=== PATIENT | female | born 1980 | race Caucasian/White ===

== ENCOUNTER 2020-12-01 20:02 | Emergency (ER) | payer OTHER ==
[~2020-12-01] VITALS: Ht 170.2 cm; Wt 74.4 kg
[2020-12-01 21:42] VITALS: BP 139/90
[2020-12-01] MEDS ORDERED: IBUP-1957 PO (22:12)
[2020-12-01] MEDS ORDERED: SULF1TAB48 PO (22:12)
[2020-12-01] MEDS ORDERED: SULFAMETH/TRIMETH 800/160 MG 1 UDTAB TABLET ONE (22:17)
--- NOTE | 2020-12-01 22:24 | NUR ---
Patient discharged to home in stable condition. Written and verbal after care instructions given. Patient verbalizes understanding of instruction.
[2020-12-01] MEDS ORDERED: SULFAMETH/TRIMETH 800/160 MG 1 UDTAB TABLET PO ONE (22:30)
== END 2020-12-01 22:33 | disposition home or self-care (01) ==
LOC: ER 20:06
DX: Z48.01 Encounter for change or removal of surgical wound dressing (principal); F15.90 Other stimulant use, unspecified, uncomplicated; F31.9 Bipolar disorder, unspecified; Z88.1 Allergy status to other antibiotic agents; Z88.8 Allergy status to other drugs, medicaments and biological substances

== ENCOUNTER 2020-12-10 08:06 | Emergency (ER) | payer OTHER ==
[~2020-12-10] VITALS: Ht 170.2 cm; Wt 742.1 kg
[~2020-12-10 08:06] MED LIST: IBUP-1957 PO; SULF1TAB48 PO
[2020-12-10 08:12] VITALS: BP 128/72
[2020-12-10] MEDS ORDERED: MUPI22OI7 MC (08:23)
== END 2020-12-10 08:28 | disposition home or self-care (01) ==
LOC: ER 08:09
DX: L02.31 Cutaneous abscess of buttock (principal); F19.10 Other psychoactive substance abuse, uncomplicated; F31.9 Bipolar disorder, unspecified; Z88.8 Allergy status to other drugs, medicaments and biological substances; Z79.899 Other long term (current) drug therapy

== ENCOUNTER 2021-02-08 15:11 | Emergency (ER) | payer OTHER ==
[~2021-02-08] VITALS: Ht 170.2 cm; Wt 72.1 kg
[~2021-02-08 15:11] MED LIST changes: +MUPI22OI7 MC
[2021-02-08 15:47] VITALS: BP 120/79
[2021-02-08] MEDS ORDERED: FLUORESCEIN SODIUM OPHTH 1 EA STRIP ONE (16:07)
[2021-02-08] MEDS: TETRACAINE HCL 0.5% OPHTALMIC 15 ML BOTTLE OP ONE (16:18)
[2021-02-08] MEDS: FLUORESCEIN SODIUM OPHTH 1 EA STRIP OP ONE (16:18)
[2021-02-08] MEDS ORDERED: OFLO5DRO6 EACHEYE (16:38)
== END 2021-02-08 16:50 | disposition home or self-care (01) ==
LOC: ER 15:15
DX: S05.02XA Injury of conjunctiva and corneal abrasion without foreign body, left eye, initial encounter (principal); F31.9 Bipolar disorder, unspecified; Z88.5 Allergy status to narcotic agent; Z88.8 Allergy status to other drugs, medicaments and biological substances; Z79.899 Other long term (current) drug therapy; X58.XXXA Exposure to other specified factors, initial encounter; Y93.89 Activity, other specified; Y92.89 Other specified places as the place of occurrence of the external cause; Y99.8 Other external cause status

== ENCOUNTER 2021-04-21 03:43 | Emergency (ER) | payer OTHER ==
[~2021-04-21] VITALS: Ht 170.2 cm; Wt 77.1 kg
[~2021-04-21 03:43] MED LIST changes: +OFLO5DRO6 EACHEYE
[2021-04-21 04:01] VITALS: BP 132/73
--- NOTE | 2021-04-21 04:26 | NUR ---
COLLIN SWABBED AND SENT TO LAB
[2021-04-21] MEDS ORDERED: LIDOCAINE 1%-EPI 1:100,000 20 ML VIAL ONE (04:36)
--- NOTE | 2021-04-21 05:09 | NUR ---
AT BED SIDE FOR I&D
--- NOTE | 2021-04-21 05:22 | NUR ---
URINE SENT TO LAB
[2021-04-21] MEDS ORDERED: CEPH500C2 PO (05:35)
[2021-04-21] MEDS ORDERED: MICO1KIT10 VG (05:39)
== END 2021-04-21 05:47 | disposition home or self-care (01) ==
LOC: ER 03:43
DX: L02.414 Cutaneous abscess of left upper limb (principal); F17.200 Nicotine dependence, unspecified, uncomplicated; Z88.8 Allergy status to other drugs, medicaments and biological substances
CPT/HCPCS: 10060; 84703; 99283; 99406; J3490

== ENCOUNTER 2021-07-29 10:50 | Emergency (ER) | payer OTHER ==
[~2021-07-29] VITALS: Ht 170.2 cm; Wt 78.0 kg
[~2021-07-29 10:50] MED LIST changes: +CEPH500C2 PO; +MICO1KIT10 VG
[2021-07-29 10:56] VITALS: BP 105/60
--- NOTE | 2021-07-29 11:05 | NUR ---
ABDOMINAL PAIN X FEW DAYS. AMBULATORY NOT I DISTRESS.
--- NOTE | 2021-07-29 11:14 | NUR ---
AT BED SIDE
--- NOTE | 2021-07-29 11:23 | NUR ---
[employer] ON BED SIDE
[2021-07-29 12:30] LABS: ALBUMIN 3.5 g/dL (3.4-5.0); BILIRUBIN,DIRECT 0.1 mg/dL (0.0-0.2); BILIRUBIN,TOTAL 0.8 mg/dL (0.2-1.0); CALCIUM, SERUM 8.4 mg/dL (8.5-10.1); CREATININE 0.5 mg/dL (0.6-1.3); TOTAL PROTEIN, SERUM 6.8 g/dL (6.4-8.2)
[2021-07-29 12:44] LABS: BILIRUBIN,URINE NEGATIVE (NEGATIVE); COLOR,URINE YELLOW (YELLOW); LEUKOCYTE ESTERASE ,URINE NEGATIVE (NEGATIVE); NITRITE, URINE NEGATIVE (NEGATIVE); PH,URINE 6.5 (5.0-8.0); PROTEIN,URINE NEGATIVE (NEGATIVE); UGLUCOSE NEGATIVE (NEGATIVE); UROBILINOGEN,URINE 0.2 EU/dL (0.2)
[2021-07-29 12:52] LABS: BACTERIA,URINE Moderate /HPF (None Seen); RBC,URINE 0-2 /HPF (0-2); SQUAMOUS EPITHELIAL CELL,UR Few /HPF (None Seen); WBC,URINE 0-2 /HPF (0-3)
[2021-07-29 13:21] LABS: BASOPHILS % (AUTO) 0.8 % (0.0-2.0); EOSINOPHILS % (AUTO) 2.7 % (0.0-6.0); HEMATOCRIT 37 % (33-45); HEMOGLOBIN 12.2 g/dL (11.5-14.8); LYMPHOCYTES # (AUTO) 0.8 K/uL (0.8-4.8); LYMPHOCYTES % (AUTO) 15.3 % (20.0-44.0); MEAN CORPUSCULAR HGB CONC 33 g/dl (31.0-36.0); MEAN CORPUSCULAR VOLUME 84 fL (82-100); MONOCYTES # (AUTO) 0.7 K/uL (0.1-1.30); MONOCYTES % (AUTO) 13.2 % (2.0-12.0); NEUTROPHILS # (AUTO) 3.7 K/uL (1.8-8.9); PLATELET COUNT (AUTO) 253 K/uL (150-450); RED BLOOD CELL COUNT(AUTO) 4.37 MIL/uL (4.0-5.2); WHITE BLOOD COUNT (AUTO) 5.4 K/uL (4.3-11.0)
== END 2021-07-29 13:50 | disposition home or self-care (01) ==
LOC: ER 10:53
DX: R11.2 Nausea with vomiting, unspecified (principal); R19.7 Diarrhea, unspecified; F31.9 Bipolar disorder, unspecified; Z88.8 Allergy status to other drugs, medicaments and biological substances; Z79.1 Long term (current) use of non-steroidal anti-inflammatories (NSAID); Z79.899 Other long term (current) drug therapy
CPT/HCPCS: 36415; 80048-TC; 80076-TC; 81001; 84703-TC; 85025-TC; 87086-TC

== ENCOUNTER 2021-12-04 16:33 | Emergency (ER) | payer OTHER ==
[~2021-12-04] VITALS: Ht 170.2 cm; Wt 86.2 kg
[2021-12-04 16:49] VITALS: BP 107/65
--- NOTE | 2021-12-04 16:55 | NUR ---
BIBS FOR PAIN/REDNESS, LEFT EYE SINCE 3 DAYS AGO AFTER LEAVING CONTACTS FOR TOO LONG. RATES PAIN 5/10. WILL CONTINUE TO MONITOR THE PATIENT.
[2021-12-04] MEDS ORDERED: TETRACAINE HCL 0.5% OPHTALMIC 15 ML BOTTLE OP ONE (17:00)
[2021-12-04] MEDS ORDERED: FLUORESCEIN SODIUM OPHTH 1 EA STRIP OP ONE (17:00)
[2021-12-04] MEDS ORDERED: FLUORESCEIN SODIUM OPHTH 1 EA STRIP ONE (17:12)
--- NOTE | 2021-12-04 17:40 | NUR ---
Patient discharged to home in stable condition. Written and verbal after care instructions given. Patient verbalizes understanding of instruction.
== END 2021-12-04 17:41 | disposition home or self-care (01) ==
LOC: ER 16:34
DX: H10.32 Unspecified acute conjunctivitis, left eye (principal); F31.9 Bipolar disorder, unspecified; Z88.8 Allergy status to other drugs, medicaments and biological substances; Z79.899 Other long term (current) drug therapy

== ENCOUNTER 2023-07-25 15:52 | Emergency (ER) | payer MEDICAID, OTHER ==
[~2023-07-25] VITALS: Ht 170.2 cm; Wt 72.6 kg
[2023-07-25 16:06] VITALS: TEMP 98.4
[2023-07-25] MEDS ORDERED: IV NS 0.9% 250 ML IV ONE (18:01)
[2023-07-25] MEDS ORDERED: CT SWABBABLE VALVE TRANS SET 1 EA INFUS.SET MC ONE (18:01)
[2023-07-25] MEDS ORDERED: IOHEXOL-300 100 ML VIAL IV ONE (18:01)
[2023-07-25 18:03] LABS: BASOPHILS # (AUTO) 0.1 K/uL (0.0-0.2); BASOPHILS % (AUTO) 1.1 % (0.0-2.0); EOSINOPHILS # (AUTO) 0.6 K/uL (0.0-0.7); EOSINOPHILS % (AUTO) 7.1 % (0.0-6.0); HEMATOCRIT 38 % (33-45); HEMOGLOBIN 12.5 g/dL (11.5-14.8); LYMPHOCYTES # (AUTO) 1.4 K/uL (0.8-4.8); LYMPHOCYTES % (AUTO) 15.5 % (20.0-44.0); MEAN CORPUSCULAR HEMOGLOBIN 28 PG (26.0-33.0); MEAN CORPUSCULAR HGB CONC 33 g/dl (31.0-36.0); MEAN CORPUSCULAR VOLUME 86 fL (82-100); MONOCYTES # (AUTO) 0.9 K/uL (0.1-1.30); MONOCYTES % (AUTO) 9.7 % (2.0-12.0); NEUTROPHILS # (AUTO) 5.9 K/uL (1.8-8.9); NEUTROPHILS % (AUTO) 66.6 % (43.0-81.0); PLATELET COUNT (AUTO) 364 K/uL (150-450); RED BLOOD CELL COUNT(AUTO) 4.48 MIL/uL (4.0-5.2); RED CELL DISTRIBUTION WIDTH 14.1 % (11.5-15.0); WHITE BLOOD COUNT (AUTO) 8.8 K/uL (4.3-11.0)
[2023-07-25 18:24] LABS: PREGNANCY TEST URINE QUAL NEGATIVE (NEGATIVE)
[2023-07-25 18:34] LABS: CALCIUM, SERUM 8.6 mg/dL (8.5-10.1); CREATININE 0.7 mg/dL (0.6-1.3); POTASSIUM 3.6 mmol/L (3.5-5.1)
[2023-07-25 18:41] LABS: ALBUMIN 3.3 g/dL (3.4-5.0); BILIRUBIN,TOTAL 0.5 mg/dL (0.2-1.0); TOTAL PROTEIN, SERUM 7.6 g/dL (6.4-8.2)
[2023-07-25] MEDS ORDERED: ACETAMINOPHEN 325 MG TABLET ONE (19:11)
[2023-07-25] MEDS: ACETAMINOPHEN 325 MG TABLET PO ONE (19:12)
[2023-07-25] MEDS ORDERED: KETOROLAC TROMETHAMINE 15 MG/ML VIAL ONE (20:04)
[2023-07-25] MEDS: KETOROLAC TROMETHAMINE 15 MG/ML VIAL IV ONE (20:07)
[2023-07-25] MEDS ORDERED: CLIN300C12 PO (21:02)
[2023-07-25] MEDS ORDERED: CLINDAMYCIN HCL 150 MG CAPSULE ONE (21:09)
[2023-07-25] MEDS: CLINDAMYCIN HCL 150 MG CAPSULE PO ONE (21:14)
[2023-07-25 21:15] VITALS: BP 110/70; O2SAT 99
== END 2023-07-25 21:16 | disposition home or self-care (01) ==
LOC: ER 15:59
DX: R68.84 Jaw pain (principal); K08.89 Other specified disorders of teeth and supporting structures; R10.2 Pelvic and perineal pain; F31.9 Bipolar disorder, unspecified; Z79.899 Other long term (current) drug therapy; Z88.1 Allergy status to other antibiotic agents
CPT/HCPCS: 99285; 70487; 85025; 84703; 36415; 80053; J7050; Q9967; J1885